=== PATIENT | female | born 1945 | race Caucasian/White ===

== ENCOUNTER → 2017-11-28 | Outpatient (CLI) | payer OTHER | END | disposition home or self-care (01) | LOC: KCIC MAMMO 08:32 | DX: Z12.31 Encounter for screening mammogram for malignant neoplasm of breast (principal) | CPT/HCPCS: 77067 ==

== ENCOUNTER → 2020-09-12 | Outpatient (CLI) | payer OTHER ==
[2015-06-08 17:39] VITALS: BP 170/97
[~2020-09-12] MED LIST: ALBU8.5H6 IH; BENZ200C47 PO; HYDR-2761 PO; LISI1TAB23 PO; OMEP40CA45 PO; PRAM0.12 PO; SERT25TA4 PO; TIZA2TAB4 PO; TRAM50TA PO; [UNRECOGNIZED DRUG - CODE] IV
--- NOTE | 2020-09-12 09:14 | KCIC ---
INDICATION: Osteoporosis screening. Postmenopausal screening COMPARISON: June 2012 TECHNIQUE: Bone densitometry was performed through the lumbar spine and proximal femur. FINDINGS: Lumbar Spine: BMD: 0.75 T-Score: -2.7 Decreased by 2 percent from prior Proximal Femur: BMD: 0.57 T-Score: -3.1 Decreased by 19 percent from prior IMPRESSION: 1. Lumbar spine falls within the osteoporotic range. 2. Proximal femur falls within the osteoporotic range. Electronically signed by: Rico Hoang MD (09/12/2020 9:11 AM) [id number]
--- NOTE | 2020-09-12 16:46 | KCIC ---
Bilateral digital screening mammograms Reason for examination: Routine screening. History of benign breast biopsies. Comparison is made to previous study dated November 2017 and May 23, 2016 Routine CC and MLO digital views obtained. Interpretation was made with the benefit of CAD. The skin and nipples show no abnormalities. No abnormal lymph nodes are seen. The breast parenchyma is scattered fibroglandular elements. (Breast density: Category B.) There are no suspicious masses, suspicious calcifications or architectural distortions. Nodularity of the breast tissue is stable. Benign calcifications. Impression: Negative mammogram. Recommend routine screening. BI-RADS Category 2: Benign. "Our facility is accredited by the [employer] Mammography Program." This patient's information has been entered into a reminder system for the patient to be notified with the results of her examination and a target date for the next mammogram. Electronically signed by: Miller Cornejo MD (09/12/2020 4:43 PM) [id number]
== END ==
LOC: KCIC MAMMO 08:20
PROVIDERS: ATTEND Family Medicine
DX: Z12.31 Encounter for screening mammogram for malignant neoplasm of breast (principal); M81.0 Age-related osteoporosis without current pathological fracture; N64.89 Other specified disorders of breast
CPT/HCPCS: 77067; 77080

== ENCOUNTER → 2020-09-12 | Outpatient (CLI) | payer OTHER ==
[2015-06-08 17:39] VITALS: BP 170/97
--- NOTE | 2020-09-12 18:06 | KCIC ---
Ribs left with PA chest History: Pain PA view of the chest and dedicated views of the left ribs were obtained. The heart and pulmonary vessels appear normal. There is perihilar linear opacities bilaterally. The visualized osseous structures appear intact. Impression: Bilateral infiltrates could be atypical pneumonia. No evidence of a bony displaced rib fracture. Electronically signed by: Leon Mena III, MD (09/12/2020 6:03 PM) [facility]
== END ==
LOC: KCIC 11:41
PROVIDERS: ATTEND Family Medicine
DX: R07.81 Pleurodynia (principal); R91.8 Other nonspecific abnormal finding of lung field
CPT/HCPCS: 71101

== ENCOUNTER → 2020-09-20 | Outpatient (CLI) | payer OTHER ==
[2015-06-08 17:39] VITALS: BP 170/97
--- NOTE | 2020-09-20 11:39 | KCIC ---
PA and lateral chest radiographs 09/20/2020 CLINICAL HISTORY: History of lung infiltrates. PA and lateral digital radiographs of the chest were obtained. Comparison is made to a PA chest radiograph dated 09/12/2020. The cardiac silhouette is mildly enlarged. The thoracic aorta is tortuous. Atherosclerotic calcification of the thoracic aorta is seen. Linear bands of subsegmental atelectasis and/or infiltrate are seen involving both lower lobes which have improved slightly since the previous examination. No area of consolidation is seen. No pneumothorax or pleural effusion is noted. The osseous structures are unchanged. Surgical clips are seen within the epigastric region of the abdomen, unchanged. IMPRESSION: Slight improvement in the bilateral lower lobe subsegmental atelectasis and/or infiltrate. Electronically signed by: Ryan Franz MD (09/20/2020 11:37 AM) [id number]
== END ==
LOC: KCIC 11:14
PROVIDERS: ATTEND Family Medicine
DX: J18.9 Pneumonia, unspecified organism (principal); I51.7 Cardiomegaly; Q25.46 Tortuous aortic arch; I70.0 Atherosclerosis of aorta
CPT/HCPCS: 71046

== ENCOUNTER → 2021-04-03 | Outpatient (CLI) | payer OTHER ==
[2015-06-08 17:39] VITALS: BP 170/97
[~2021-04-03] MED LIST changes: -OMEP40CA45 PO; +OMEP40CA7 PO; +SERT-266 PO; -SERT25TA4 PO; +TIZA-58 PO; -TIZA2TAB4 PO
--- NOTE | 2021-04-03 10:40 | KCIC ---
XR CHEST 2V W/ left posterior oblique CLINICAL INDICATIONS: Reason: Congestion, shortness of air hx. pneumonia 1 yr. ago. Instructions: Per office, do Left Oblique view COMPARISON: September 20, 2020. Findings: Bilateral linear scarring and chronic interstitial thickening is unchanged. No new lung inf iltrate or pleural effusion or pulmonary edema or lung mass or pneumothorax is seen. The heart size, pulmonary vasculature, mediastinum and both yamile are stable. The osseous structures appear intact. IMPRESSION: No acute radiographic abnormality is seen. Electronically signed by: Otoniel Martinez MD (04/03/2021 10:38 AM) [id number]
== END ==
LOC: KCIC 08:51
PROVIDERS: ATTEND Family Medicine
DX: R06.02 Shortness of breath (principal); R09.81 Nasal congestion; R09.89 Other specified symptoms and signs involving the circulatory and respiratory systems
CPT/HCPCS: 71047